=== PATIENT | female | born 1955 | race Hispanic/Latino ===

== ENCOUNTER 2019-11-01 00:03 | Inpatient (IN) | payer MEDICARE, MEDICAID, OTHER ==
[~2019-11-01] VITALS: Ht 152.4 cm; Wt 62.1 kg
[2019-11-01] MEDS ORDERED: METOPROLOL SUCC25 MG PO (00:26)
[2019-11-01] MEDS ORDERED: LIPITOR10 MG PO (00:26)
[2019-11-01] MEDS ORDERED: ANASTROZOLE1 MG PO (00:41)
[2019-11-01] MEDS ORDERED: FERROUS SULFAT324 MG PO (00:41)
[2019-11-01] MEDS ORDERED: NORCO 5-325 TA1 EACH PO (00:42)
--- NOTE | 2019-11-01 02:38 | NUR ---
PT ARRIVED TO ROOM 114 FROM ED VIA STRETCHER
--- NOTE | 2019-11-01 03:27 | NUR ---
HOB ELEVATED, NGT R NARE TO LOW INTERMITENT WALL SUCTION, WITH SCANT AMOUNT OF PINKISH FROTHY DRAINAGE IN TUBE. HOB ELEVATED TO HER COAMFORT, ASPIRATION PRECAUTIONS IN PLACE. DRY HEAVING, MEDICATED WITH ZOFRAN 4MG IV AND C/O 4/10 ABD PAIN. ABD W FAINT BOWEL TONES, TENDER, ROUND, MEDICATED WITH DILAUDID 0.5MG IV. IVF INFUSING LAC. ORIENTED TO ROOM AND PROCEDURES. COOP. MED TEACHAING AND ORIENTEATION OF ROOM DONE IN S[place] SUDANESE, STATED UNDERSTANDING. NPO CALL LIGHT AT HANDS REACH
--- NOTE | 2019-11-01 05:37 | NUR ---
Pt up to bsc, voided 200cc dark yellow urine, back to bed. tolerated well. NGT with small amount of pinkisk thick frothy drainage. had 10cc of undigested food like particles/pink frothy phlegm emesis. was medicated with Dilaudid per abd pain with good pain relief and with zofran x1 per dry heaving. partially effective. Coop. On room air. IVf infusing w/o problems. 1PA. NPO, mouth care done. Cymro speaking only, family at bedside
--- NOTE | 2019-11-01 08:35 | NUR ---
PT SLEEPING SOUNDLY AT TIME OF SHIFT CHANGE, FAMILY PRESENT IN THE ROOM. AWAKENED FOR ASSESSMENT PT REPORTS 4/10 PAIN IN HER ABDOMEN. MEDICATED PER ORDERS. PT DENIES NAUSEA OR OTHER C/O.
--- NOTE | 2019-11-01 09:18 | NUR ---
DR LEOS IN TO SEE PT, DAUGHTER IS PRESENT IN THE ROOM. PLAN OF CARE DISCUSSED UNDERSTANDING VERBALIZED. PT AGREES PAIN MED WAS EFFECTIVE SHE DENIES FURTHER NEEDS AT THIS TIME
--- NOTE | 2019-11-01 10:55 | NUR ---
PATIENT IN BED RESTING WITH EYES CLOSED. CALL LIGHT IN REACH. NO FURTHER NEEDS AT THIS TIME.
--- NOTE | 2019-11-01 13:03 | NUR ---
PT PRESENT IN THE ROOM. PT UP TO AMBULATE THE WORTHY TOLERATES THIS WELL. RETURNS TO RESTING IN BED
--- NOTE | 2019-11-01 13:38 | NUR ---
PATIENT UP TO BATHROOM AND BACK TO BED, SBA. OFFERED PATIENT AM AND ORAL CARE AGAIN, PATIENT REFUSED, SUPPLIES LEFT SINK FOR PATIENT. GRANDDAUGHTER IN ROOM. PATIENT COMPLANING OF STOMACH STILL BEING SORE, RN NOTIFIED. CALL LIGHT IN REACH. NO FURTHER NEEDS AT THIS TIME.
--- NOTE | 2019-11-01 14:52 | NUR ---
Report recieved from Pati Christianson RN. Patient resting with eyes closed, in bed, at this time. Family member at bedside. No signs of pain or discomfort at this time. Call light in reach, bed rails up X2. NG remains on low intermittent suction at this time.
--- NOTE | 2019-11-01 15:26 | NUR ---
Dr. Mahan in room, instructs patient on use of incentive spirometer and to use it 10 times an hour. Patient demonstrates proper use of IS. Family member in room. NG clamped for patient to ambulate in the hallway and in room. IV fluids continue infusing at this time.
--- NOTE | 2019-11-01 15:46 | NUR ---
Ambulates in hallway X2. Returns to room and replaced on low intermittent suction NG tube. Warm blankets provided per request.
--- NOTE | 2019-11-01 17:24 | NUR ---
NG TUBE REMAINS ON LOW INTERMITTENT SUCTION. AMBULATES IN HALLS. USES INCENTIVE SPIROMETER.
--- NOTE | 2019-11-01 18:28 | NUR ---
PATIENT IN BED WATCHING TV, RN AND VISITOR IN ROOM. CALL LIGHT IN REACH. NO FURTHER NEEDS AT THIS TIEM.
--- NOTE | 2019-11-01 19:40 | NUR ---
UP TO BR, 1PA, SHUFFLED GAIT. ON ROOM AIR, COOP WITH ASSESSMENT. LUNGS CLEAR, C/O ABD PAIN ANDLOW BACK PAIN. WAS MEDICATED EARLIER, DENIES NEED FOR PAIN MED AT THIS TIME. TOLERATING FLUIDS WELL, NO N/V. CALL LIGHT AT BEDSIDE
--- NOTE | 2019-11-01 20:31 | NUR ---
up to br with 1pa, voided and had loose green colored bm, two this shift. tolerated well. On room air. Rnage NGT to LIWS. no extra drainage noted since am markings. abd soft TORY. IVF infusing w/o problems, scds in place. in room. Pt speaks a [employer] Dialect, and little Mozambican, no Kyrgyz, translating and this nurse spoke Mozambican to pt. cooperative. NPO, mouth care done. HOB elevated, denies c/o pain at thiswt time, call light at hands reach
--- NOTE | 2019-11-01 23:02 | NUR ---
R NARE NGT IN PLACE, VERY SCANT AMOUNT OF DRAINAGE NOTED. LIWS. RESTING, EYES CLOSED, NO RESP DISTRESS. ON ROOM AIR. IVF INFUSING, FAMILY IN ROOM
--- NOTE | 2019-11-02 00:02 | NUR ---
UP TO BR, HAD LARGE AMOUNT OF SEMI LIQUID GREEN COLORED BM AND SMALL AMOUNT OF URINE. BACK TO BED. NGT R SARAH BRIZUELA. DRAINING SCANT AMOUNT OF PINKISH COLORED DRAINAGE. IVF INFUSING W/O PROBLEMS. ON ROOM AIR. NO C/O PAIN
--- NOTE | 2019-11-02 02:25 | NUR ---
awakes easily. no c/o pain. NGT with very scant amount of drainage. LIWS in place. IVF infusing, abd soft, TORY. has had several bms this shift. NPO mouth care done
--- NOTE | 2019-11-02 05:23 | NUR ---
PT SLEPT, R NARE NGT TO LIWS, FLUSHED X1, SCANT AMOUNT OF DRAINAGE PATENT. NO C/O PAIN OR N/V, NPO. MOUTH CARE DONE. HAS HAD SEVERAL SOFT-LIQUID GREEN COLORED BM'S. VOIDING QS. IVF INFUSING W/O PROBLEMS. 1PA, TURN SELF IN BED, HOB ELEVATED, ASPIRATION AND FALL PRECAUTIONS IN PLACE. SCDS IN PLACE. FAMILY IN ROM TO HELP TRANSLATE PT SPEAKS LIMITED TURKMEN/MAURITIAN HER FIRST LANGUAGE IS AN OAXACAN DIALECT. COOPERATIVE, ON ROOM AIR, NO DISTRESS, VSS RECEIVED METOPROLOL IV SHCEDULED
--- NOTE | 2019-11-02 06:58 | CONS ---
[facility] [address], [place] [address] Signed DATE OF CONSULTATION: 11/01/2019 CHIEF COMPLAINT: Periumbilical abdominal pain. HISTORY OF PRESENT ILLNESS: Keke is a 64-year-old speaking female, who was diagnosed with rectal cancer last year at [facility]. Apparently, she has no primary care provider. Her [place] she was diagnosed with a rectal cancer. She was referred back to [facility] where she underwent her laparoscopic low anterior resection with Dr. Toñito Pichardo and she had her chemotherapy with Dr. Haider Brothers. Most likely, she has had radiation, but I do not know the physician's name. She talked about breast cancer in the remote past with Dr. Angeles at [facility] as well. She apparently has some hypertension, but no longer takes her metoprolol. She has completed her radiation chemotherapy. She has had her ileostomy reversed. She just saw her oncologist a week or so ago and apparently even the radiographic studies were fine. However, she developed fairly significant periumbilical pain yesterday. Her family brought her to [facility] here in [place], [place] because it is close within [facility] by about 10 or 15 minutes. She was evaluated by our ER physician last night with a normal white count, but a CT scan concerning for some dilated loops in the mid small-bowel. Consequently, an NG tube was placed with return of clear gastric fluid. She was admitted overnight. In general, she thinks she feels better this morning. In the emergency room, she was guaiac negative. She takes iron pills for chronic anemia and there is some concern that her stool are little dark. She also talks about urgency after low anterior resection and it was recommended she start some Metamucil. Her granddaughter is here today to help her interpret although Keke does pretty well. She is not able to tell me how much of the rectum is remaining. Of course, we have none of her previous records. PAST MEDICAL HISTORY: Rectal cancer diagnosed in 2019 at [facility] with her low anterior resection with protecting loop ileostomy and reversal with Dr. Toñito Pichardo. She has had breast cancer treated with Dr. Angeles, her anemia and her hypertension. PAST SURGICAL HISTORY: Includes the low anterior resection with a protecting loop ileostomy and then reversal loop ileostomy with Dr. Toñito Pichardo at [facility]. Her medical oncologist would be Dr. Haider Brothers for the radiation chemo. She has had previous partial mastectomy. SOCIAL HISTORY: She does not smoke or drink. 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 She lives with her daughter and granddaughters. Apparently, she has no primary care provider and is not able to tell us if she goes to any one of the clinics in the [facility]. We know that Dr. Toñito Pichardo is her colorectal surgeon and Dr. Haider Brothers is her medical oncologist. We know she does not drive. 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 FAMILY HISTORY: No family history of any significant medical issues to her knowledge. REVIEW OF SYSTEMS: We had 10 systems reviewed. She told me she has never had any orthopedic injuries. There is no metal in her body. ALLERGIES: None. MEDICATIONS: Anastrozole, iron and Caliente 5 mg. Previously she may have been on metoprolol and atorvastatin PHYSICAL EXAMINATION: VITAL SIGNS: Her blood pressure is 153/90, heart rate 88, respiratory rate 16, her temperature is 97.8 degrees. She is 98% on room air. She is 5 feet tall at 62 kg. GENERAL: Keke is a 64-year-old female, lying supine in her hospital bed. Her NG tubes in place with clear gastric fluid in the canister. Her granddaughter is at the bedside. Keke actually understanding Malaysian pretty well, but her granddaughter is fluently bilingual, also our nurse Domenica is with us. She does not appear systemically ill or toxic. She is not jaundiced. LUNGS: Clear to auscultation bilaterally. HEART: Regular rate and rhythm without murmurs. ABDOMEN: Soft and flat and nontender. She points to the periumbilical area for the pain again with her granddaughter and our nurse Domenica in the room. We did a digital rectal exam and I can just feel what I think is her staple line up at about 6 or 7 cm. It is a bit indurated and I suspect that will mature over time. She had some dark stool in the vault but not particularly black. Her sphincter tone was good. Her perianal hygiene is excellent. There is no evidence of any dermatitis status post radiation. LABORATORY DATA: Her white blood cell count is 9.8, hemoglobin 14, neutrophils were 89. Her BUN 16, creatinine 0.63. Her urinalysis showed some blood, but no bacteria. I am not sure if that was a clean-catch or a straight cath. Liver function tests are negative. Albumin is 5.2, lipase is negative. Coronavirus is pending. RADIOGRAPHIC STUDIES: Electronically Signed By: CHLOE LEOS MD 11/02/19 0658 PATIENT NAME: KEKE PISANO CONSULTATION DATE OF : 53 REPORT #: [id number] PHYSICIAN: CHLOE LEOS MD PCP: HAIDER BROTHERS MD REPORT IS CONFIDENTIAL AND NOT TO BE RELEASED WITHOUT AUTHORIZATION [facility] [address], [place] [address] Signed A chest x-ray was performed. An NG tube is definitely in the stomach and the lungs are clear. The CT scan of abdomen and pelvis showed some dilated mid small bowel loops, but the proximal small bowel loops were probably decompressed, which brings up the idea of a closed-loop obstruction. There is some ascites in the abdomen. Unfortunately our computer is down, I could not access the images directly. ASSESSMENT AND PLAN: Keke is a 64-year-old female, who presents with what may very well be a small bowel obstruction following a low anterior resection for rectal cancer last year. She also seems to have untreated hypertension. Consequently, we will ask our Internal Medicine service to see her. We will order some Lopressor and EKG as well as a CEA level given the history of rectal cancer. We will also obtain her old records as well. In the meantime, we will treat her conservatively with NG tube decompression and n.p.o. status. We have also printed off some literature for small-bowel obstruction, so her granddaughter can review that as well. I have reviewed this with Keke and her granddaughter. They have expressed understanding and agreed above plan. Chloe Leos MD ALB/MODL /[id number] cc: MD Toñito Traore MD Eric Gamboa, MD Copies: CHLOE LEOS MD, ERIC MD ~ Electronically Signed By: CHLOE LEOS MD 11/02/19 0658 PATIENT NAME: KEKE PISANO CONSULTATION DATE OF : 53 REPORT #: [id number] PHYSICIAN: CHLOE LEOS MD PCP: HAIDER BROTHERS MD REPORT IS CONFIDENTIAL AND NOT TO BE RELEASED WITHOUT AUTHORIZATION
--- NOTE | 2019-11-02 07:19 | NUR ---
REPORT RECIEVED. PT IN BED WITH EYES CLOSED. RESPIRATIONS EQUAL AND NONLABORED. CALL LIGHT IN REACH. NG TUBE TO LIWS. D5LR AT 125.
--- NOTE | 2019-11-02 07:30 | EKG ---
[facility] [address] [facility] [place] [address] Signed Normal sinus rhythm Moderate voltage criteria for LVH, may be normal variant Borderline ECG No previous ECGs available Confirmed by CARLOS PANTOJA MD ([id number]) on 11/02/2019 7:30:34 AM Electronically Signed By: CARLOS PANTOJA MD 11/02/19 0730 PATIENT NAME: KENNY PISANO Electrocardiogram DATE OF : 53 PHYSICIAN: CARLOS PANTOJA MD REPORT #: [id number] REPORT IS CONFIDENTIAL AND NOT TO BE RELEASED WITHOUT AUTHORIZATION
--- NOTE | 2019-11-02 07:55 | NUR ---
PT UP TO AMBULATE HALLS WITH GRANDDAUGHTER AT SIDE. REPORTS A HEADACHE AND THROAT PAIN FROM NG TUBE. WILL MEDICATE WITH TYLENOL AFTER WALK
--- NOTE | 2019-11-02 09:15 | NUR ---
IMAGING IN FOR ABDOMINAL X-RAY. ASSESSEMENT COMPLETED. PT WITH MULTIPLE BM'S. BOWEL TONES ACIVE. ABDOMEN SOFT AND NOT TENDER. REPORTING TROAT PAIN AT 5/10. PRN HYDROMORPHONE ADMINSITERED. MEDCATIONS GIVEN. LUNGS CLEAR, HEART SOUNDS WITH MURMUR. NO OUTPUT OVER NIGHT FROM NG TUBE, 10 ML FLUSHED. NO RETURN.
--- NOTE | 2019-11-02 10:30 | NUR ---
PT REPORTING DISCOMFORT FRO NG TUBE IN THROAT. PRN TYLENOL GIVEN. SMALL BOWEL FOLLOW THROUGH STILL GOING ON. PT NG TUBE CLAMPED. PT DENIES NAUSEA OR DISCOMFORT FROM CLAMPED NG TUBE. CALL LIGHT IN REACH.
--- NOTE | 2019-11-02 11:44 | NUR ---
PT REPORTING 3/10 PAIN FROM NG TUBE. DENIES CHEST PAIN OR TIGHTNESS OR SOB. REQUESTION PAIN MEDICATIONS. 0.5 DILAUDID ADMINSTERED. PT DENIES NAUSEA WITH NG BEING CLAMPED. AT BEDSIDE. PT AMBUALTED HALLS.
--- NOTE | 2019-11-02 12:18 | NUR ---
ROUNDED ON PT. OXYGEN 95% ON RA, HEART RATE REGULAR AT 70. PT IN BED WITH EYES CLOSED, RESPIRATIONS RATE EQUAL AND NONLABORED.
--- NOTE | 2019-11-02 13:38 | NUR ---
PT OUT AMBULATING HALLS.
--- NOTE | 2019-11-02 14:20 | NUR ---
PATIENT AMBULATED IN HALLWAY, IND. PATIENT NOW BACK IN BED. CALL LIGHT IN REACH. NO FURTHER NEEDS AT THIS TIME.
--- NOTE | 2019-11-02 14:33 | NUR ---
DR LEOS NOTIFIED OF SMALL BOWEL FOLLOW-THROUGH RESULTS INCLUDING, "NO EVIDENCE OF BOWEL OBSTRUCTION, STRICTURE, OR MASS" ON IMAGING. TELEPHONE ORDERS TO DC NG TUBE, START FULL LIQUID DIET, AND DECREASE IV FLUIDS TO 75ML/HR. READ BACK DONE FORE VERIFICATION.
--- NOTE | 2019-11-02 14:43 | NUR ---
NG TUBE DC'D. PT TOLERATED WELL. ICE WATER PROVIDED. IV FLUIDS DECREASED TO 75ML/HR.
--- NOTE | 2019-11-02 17:59 | NUR ---
CALL MADE TO DR LEOS TO DISCUSS IV METOPROLOL AND PROTONIX POSSIBLY SWITCHING TO ORAL GIVEN PT CHANGE IN PO STATUS. TELEPHONE ORDER TO DC PROTONIX AND CONTACT DR PANTOJA REGAURDING IV METOPROLOL. DR PANTOJA CALLED ORDERS TO KEEP METOPROLOL IV AND DR GONZALEZ REASSESS NEED TOMORROW.
--- NOTE | 2019-11-02 18:31 | NUR ---
PT HAD GOOD DAY. FINISHED SMALL BOWEL FOLLOW-TRHOUGH SHOWED NO SBO. NG TUBE DC'D. TOLERATING FULL LIQUID DIET. SOME MILD PAIN IN THROAT FROM NG TUBE. IMPROVING. DENEIS N/V. MULTIPLE BOWEL MOVEMENTS. VOIDING QS.
--- NOTE | 2019-11-02 19:08 | NUR ---
PATIENT WANTED SHOWER AFTER DINNER BUT STILL EATING BY END OF OUR SHIFT, IN ROOM AND SAID SHE WOULD CALL WHEN READY. PATIENT IND IN ROOM AND AM AND ORAL CARE SUPPLIES AT SINK. CALL LIGHT IN REACH. NO FURTHER NEEDS AT THIS TIME.
--- NOTE | 2019-11-02 19:14 | NUR ---
CHECKED WITH PATIENT TO SEE IF SHE WAS READY FOR A SHOWER, PATIENT WAS NOT READY AT THIS TIME AND WAS STILL WORKING ON EATING HER DINNER, IT IS HER FIRST MEAL AFTER HAVING NG TUBE REMOVED
--- NOTE | 2019-11-02 19:20 | NUR ---
BEDSIDE REPORT RECEIVED FROM OFFGOING RNNATASHA.
--- NOTE | 2019-11-02 20:31 | NUR ---
PT ASSESSMENT COMPLETE. PT RESTING IN BED AWAKE. REPORTS THAT SHE JUST WAS UP TO HAVE BM. PT'S AT BEDSIDE, TRANSLATES FOR HER WITH DIFFICULTY. PT RATES PAIN 3/10 TO ABD, 2/10 TO THROAT. REQUESTS PRN TYLENOL, ADMINISTERED. DECLINES SOB OR NAUSEA AT THIS TIME. BT'S HYPOACTIVE, ABD TENDER TO PALPATION. PT REPORTS BEING VERY COLD. WARM BLANKET PROVIDED. PT AND HER DENY FURTHER NEEDS AT THIS TIME. CALL LIGHT IN REACH.
--- NOTE | 2019-11-02 23:26 | NUR ---
PT RESTING IN BED WITH EYES CLOSED. PT'S GRANDDAUGHTER RESTING ON COUCH, DENIES NEEDS AT THIS TIME. CALL LIGHT IN REACH.
--- NOTE | 2019-11-03 00:11 | NUR ---
MACHINE SHOP WORKER TO ROOM FOR IV PUMP ALARMING. PT RESTING IN BED WITH EYES CLOSED. WAKES EASILY. REPORTS THAT HER ABD PAIN IS A T 6/10, WOULD LIKE PRN PAIN MEDICATIONN, ADMINISTERED, SEE EMAR. DENIES FURTHER NEEDS AT THIS TIEM. CALL LIGHT IN REACH. GRANDDAUGHTER RESTING AT BEDSIDE.
--- NOTE | 2019-11-03 02:46 | NUR ---
SATELLITE INSTALLATION TECHNICIAN TO ROOM FOR SCHEDULED MEDICATION ADMINISTRATION. VS NOT WITHIN PARAMETERS FOR TRAVELING OPERATOR, HELD AT THIS TIME. PT ASSESSMENT COMPLETE. PT STATES "POQUITO" WHEN ASKED ABOUT PAIN. BT'S ACTIVE. ABD TENDER TO PALPATION. PT DENIES FURTHER NEEDS AT THIS TIME. CALL LIGHT IN REACH. PT'S GRANDAUGHTER SLEEPING ON COUCH IN ROOM.
--- NOTE | 2019-11-03 04:30 | NUR ---
PT UTILIZES CALL LIGHT TO USE THE BATHROOM. PT UP TO BATHROOM AND BACK TO BED WITH 1 PA. TOLERATED WELL. PT REPORTS THAT PAIN IS OK AT THIS TIME. DENIES FURTHER NEEDS. CALL LIGHT IN REACH. GRANDDAUGHTER ON COUCH.
--- NOTE | 2019-11-03 07:23 | NUR ---
REPORT RECEIVED. PT IN BED. BREAKFAST ORDERED. DR LEOS IN TO ROUND. DISCHARGE PLAN DISCUSSED. CALL LIGHT IN REACH.
--- NOTE | 2019-11-03 08:48 | NUR ---
PT OUT AMBULATING HALLS.
--- NOTE | 2019-11-03 08:59 | DS ---
[facility] [address] [place], [place] [address] Signed ADMISSION DATE: 11/01/2019 DISCHARGE DATE: 11/03/2019 FINAL DIAGNOSES: 1. Constipation. 2. Stage III rectal cancer. 3. Breast cancer. 4. Hypertension. HISTORY OF PRESENT ILLNESS: Keke is a 64-year-old female, who unfortunately has been through not only breast cancer last year, but rectal cancer as well. She underwent a lower anterior resection in January [address] Pichardo for stage III rectal cancer. She had ileostomy reversed on June 29, [address] Pichardo. She has been receiving her chemotherapy with Dr. Haider Brothers. She finished that up on 05/12/2019. She has also had radiation treatments. Generally, she was doing fine, but started to have lower abdominal pain. She came to our local emergency room for evaluation. Her vital signs were fine, although, the blood pressure was a little high as she is not completely compliant with her lisinopril. Her white count was normal. Chest x-ray showed the NG tube in her stomach and CT scan showed probably were dilated mid small bowel loops concerning for small-bowel obstruction. We could see the kezia in the small bowel and the rectum. HOSPITAL COURSE: Keke was admitted as above and treated conservatively. On digital rectal exam, we could feel the kezia at 5 or 6 cm from the anal verge. That anastomosis is patent. We did check her CEA level and it was normal at 1.15. Pre-albumin was slightly low at 11.9. She was feeling better and doing well, so we performed a simple small-bowel follow-through. The contrast went through nicely without any obstruction or narrowing particularly at the small bowel anastomosis. She has now had multiple bowel movements and lots of flatus. The abdominal exam is now markedly improved. She is soft, flat, nontender and she has been tolerating a full liquid diet. At this point, we are going to be discharging her to home. DISCHARGE PLANS AND MEDICATIONS: Keke will be discharged to home and can resume her chronic medications. It sounds like she has been on lisinopril for her hypertension. We did have our Internal Medicine Service see her here in the hospital and she was given IV Lopressor. I asked her to follow up with [facility] in that regard. She should also keep her appointment in FEBRUARY with her oncologist Dr. Haider Brothers and of course, she can follow up with Dr. Pichardo as needed. She can follow up my office here in [place] as a Electronically Signed By: CHLOE LEOS MD 11/03/19 0859 PATIENT NAME: KEKE PISANO DISCHARGE SUMMARY DATE OF : 53 REPORT #: [id number] PHYSICIAN: CHLOE LEOS MD PCP: HARISH NORMAN REPORT IS CONFIDENTIAL AND NOT TO BE RELEASED WITHOUT AUTHORIZATION [address] [address] Signed general surgeon as needed. Otherwise, we are going to allow her to follow a soft diet for a week and then back to a regular diet. She can continue her activities of daily living. She can shower and bathe as usual. She and her granddaughter have expressed understanding and agreed to above plan. MD ANANTH Traore/DAVEYL /[id number] cc: MD Haider Sharp MD Andrew L Bower, MD Copies: HAIDER BROTHERS MD, ANDREW L MD ~ Electronically Signed By: CHLOE LEOS MD 11/03/19 0859 PATIENT NAME: KEKE PISANO DISCHARGE SUMMARY DATE OF : 53 REPORT #: [id number] PHYSICIAN: CHLOE LEOS MD PCP: HARISH NORMAN REPORT IS CONFIDENTIAL AND NOT TO BE RELEASED WITHOUT AUTHORIZATION
[2019-11-03] MEDS ORDERED: ZESTRIL20 MG PO (09:44)
[2019-11-03] MEDS ORDERED: CALCIUM500 MG PO (09:45)
[2019-11-03] MEDS ORDERED: METAMUCIL660 GM PO (09:45)
[2019-11-03] MEDS ORDERED: MULTI VITAMIN1 EACH PO (09:45)
--- NOTE | 2019-11-03 09:47 | NUR ---
PATIENT [facility] IN ROOM, [facility] IN ROOM. PATIENT AMBULATED HALLWAY THIS MORNING, IND. REFUSED AM AND ORAL CARE WHEN ASKED, SUPPLIES AVALIABLE AT SINK AND PATIENT SAID SHE WOULD DO THEM NEXT TIME SHE IS UP. CALL LIGHT IN REACH. NO FURTHER NEEDS AT THIS TIME.
--- NOTE | 2019-11-03 10:08 | NUR ---
DISCHARGE INSTRUCTIONS PROVIDED TO PT AND GRANDDAUGHTER. QUESTIONS ANSWERED ABOUT STAYING HYDRATED AND LOW FIBER DIET. IV DC'D AND WNL.
== END 2019-11-03 10:05 | disposition home or self-care (01) | DRG 392 ==
LOC: ED 00:03 → MS 00:05
PROVIDERS: ADMIT Colon & Rectal Surgery
DX: K59.00 Constipation, unspecified (principal); C20 Malignant neoplasm of rectum; I10 Essential (primary) hypertension; D63.0 Anemia in neoplastic disease; Z20.828 Contact with and (suspected) exposure to other viral communicable diseases; Z79.899 Other long term (current) drug therapy; Z79.891 Long term (current) use of opiate analgesic; Z85.3 Personal history of malignant neoplasm of breast
CPT/HCPCS: 36415; 71045; 74177; 74250; 80048; 80053; 81001; 82378; 83690; 83735; 84100; 84134; 85025; 93005; 93010; 96361; 96375; 96376; 99285-25; C9113; C9803; J1170; J1650; J2405; J3480; J7030; J7121; Q9967; U0002